=== PATIENT | female | born 1925 | race Caucasian/White ===

== ENCOUNTER → 2016-11-15 | Outpatient (CLI) | payer MEDICARE, OTHER ==
[~2016-11-15] MED LIST: ASCO-296 PO; DORZ10DR12; GEMF600T3; LATA2.5D7; LISI10TA7; MELO-11 PO; METO-68 PO; OMEP-29 PO; WARF2.5T41 PO; [UNRECOGNIZED DRUG - CODE] PO
== END ==
LOC: WC.BC 14:56
DX: Z12.31 Encounter for screening mammogram for malignant neoplasm of breast (principal); C50.911 Malignant neoplasm of unspecified site of right female breast
CPT/HCPCS: 77063; G0202